=== PATIENT | female | born 1945 | race Caucasian/White ===

== ENCOUNTER 2017-07-16 09:36 | Outpatient (CLI) | payer MEDICARE, OTHER ==
--- NOTE | 2017-07-16 12:40 | XRAY Report ---
THREE-VIEW LEFT KNEE: 07/16/2017 CLINICAL INDICATION: Pain. FINDINGS: AP, lateral, sunrise views of the left knee demonstrate no evidence of fracture or disloca tion. Minimal osteoarthritis is present, with tiny marginal osteophytes. No effusion is seen. No f oreign body is seen in the soft tissues. IMPRESSION: MINIMAL OSTEOARTHRITIS. JOB #: [id number] EXT JOB #:[id number]
== END 2017-07-16 09:37 | disposition home or self-care (01) ==
LOC: DI 09:36
PROVIDERS: ATTEND Physician Assistant Medical
DX: M17.12 Unilateral primary osteoarthritis, left knee (principal)

== ENCOUNTER 2018-04-22 07:21 | Day surgery (SDC) | payer MEDICARE, OTHER ==
[~2018-04-22 07:21] MED LIST: BRIMONIDINE 0.2% OPHTH DROPS 5 ML ONE; BSS/LIDOCAINE/EPINEPHRINE 1 ML SYRINGE ONE; TIMOLOL 0.5% OPHTH DROPS ONE; TRIAMCIN/MOXIFLOX OPHTHALMIC 0.6 ML VIAL IO ONE; VANCOMYCIN OPHTHALMI 8MG/0.8ML 8 MG/0.8 ML SYRINGE IO ONE
[2018-04-22] MEDS ORDERED: MIDAZOLAM 2 MG/2 ML VIAL IVP ONE (07:22)
[2018-04-22] MEDS ORDERED: PROPARACAINE 0.5% OPHTH DROPS 15 ML ONE (07:39)
[2018-04-22] MEDS ORDERED: KETOROLAC 0.45% OPHTH DROPS ONE (07:39)
[2018-04-22] MEDS ORDERED: CYCLOPENTOLATE 1% OPHTH DROPS 2 ML ONE (07:39)
[2018-04-22] MEDS ORDERED: PHENYLEPHRINE 2.5% OPHTH 2 ML DROPS ONE (07:39)
[2018-04-22] MEDS ORDERED: LACTATED RINGERS 500 ML IV ONE (07:42)
[2018-04-22] MEDS ORDERED: KETOROLAC 0.45% OPHTH DROPS LEFTEYE ONE (07:47)
[2018-04-22] MEDS ORDERED: CYCLOPENTOLATE 1% OPHTH DROPS 2 ML LEFTEYE ONE (07:47)
[2018-04-22] MEDS ORDERED: PHENYLEPHRINE 2.5% OPHTH 2 ML DROPS LEFTEYE ONE (07:47)
[2018-04-22] MEDS ORDERED: PROPARACAINE 0.5% OPHTH DROPS 15 ML LEFTEYE ONE ×2 (07:47→08:54)
[2018-04-22] MEDS ORDERED: EPINEPHrine 1 MG/ML AMP IR ONE (08:51)
[2018-04-22] MEDS ORDERED: BRIMONIDINE 0.2% OPHTH DROPS 5 ML OPTH ONE (08:51)
[2018-04-22] MEDS ORDERED: CHONDR SULF/HYALURONATE SYRINGE IO ONE (08:52)
[2018-04-22] MEDS ORDERED: BSS/LIDOCAINE/EPINEPHRINE 1 ML SYRINGE IO ONE ×2 (08:53)
[2018-04-22] MEDS ORDERED: TIMOLOL 0.5% OPHTH DROPS OPTH ONE (08:53)
[2018-04-22 09:53] VITALS: BP 108/69
--- NOTE | 2018-04-22 16:22 | OPERATIVE REPORT ---
DATE OF SERVICE: 04/22/2018 Physician: Alvaro Forrester MD PREOPERATIVE DIAGNOSIS: Visually significant cataract, left eye. This was her first cataract surgery. POSTOPERATIVE DIAGNOSIS: Visually significant cataract, left eye. This was her first cataract surgery. NAME OF PROCEDURE: Phacoemulsification with posterior chamber intraocular lens implant, left eye with laser assist. SURGEON: Alvaro Forrester MD ANESTHESIA: Monitored anesthesia care. COMPLICATIONS: None. OPERATIVE INDICATIONS: This is a 72-year-old woman with progressive vision loss in the left eye due to 2+ nuclear sclerotic, 2+ cortical and 1+ posterior subcapsular cataract. Best corrected visual acuity was 20/30 with glare to 20/400 in the left eye. Indications for surgery are overall decrease in vision, difficulty driving in low light or at night and difficulty driving at night because of head lights from other vehicles. She was consented at length concerning risks and benefits of cataract surgery. Afterward, she expressed a desire to proceed with surgery. OPERATIVE PROCEDURE: The patient was taken to OR #3 and placed under monitored anesthesia care. A surgical timeout was conducted confirming the correct patient, correct procedure, and correct surgical site. She was placed on the LenSx laser and her eye docked to the laser interface. The laser performed the capsulotomy, lens softening, phaco wounds, and arcuate keratotomy incisions. She was then moved to the operating microscope, given topical anesthesia, and then prepped and draped in the usual sterile fashion. The eye was entered at the 6 and 3 o'clock positions. Intracameral Shugarcaine was injected into the anterior chamber, followed by Viscoat. A capsulorrhexis flap created by the LenSx laser was removed from the anterior chamber. Nucleus was hydrodissected and phacoemulsified. The cortex was evacuated using automated infusion and aspiration. Provisc was injected in the capsular bag and a 22.0 diopter intraocular lens inserted into the bag. Approximately 0.8 mL of a mixture of triamcinolone, moxifloxacin, and vancomycin was injected subconjunctivally in the superior quadrant for infection and inflammation prophylaxis. I and A was used to evacuate the viscoelastic material. The eye was inflated to physiologic pressure using balanced salt solution and found to be watertight. The patient was taken from the operating room in good condition and given postop instructions. TD: 04/22/2018 09:29
== END 2018-04-22 07:22 | disposition home or self-care (01) ==
LOC: SDS 07:21
PROVIDERS: ATTEND Ophthalmology
PROC: 08RK3JZ Replacement of Left Lens with Synthetic Substitute, Percutaneous Approach (ICD-10-PCS; principal; 2018-04-22 08:30)
DX: H25.812 Combined forms of age-related cataract, left eye (principal); Z85.51 Personal history of malignant neoplasm of bladder
CPT/HCPCS: 66984; A9270; J3490; V2632

== ENCOUNTER 2018-05-20 08:51 | Day surgery (SDC) | payer MEDICARE, OTHER ==
[2018-05-20] MEDS ORDERED: PHENYLEPHRINE 2.5% OPHTH 2 ML DROPS ONE (09:16)
[2018-05-20] MEDS ORDERED: KETOROLAC 0.45% OPHTH DROPS ONE (09:16)
[2018-05-20] MEDS ORDERED: CYCLOPENTOLATE 1% OPHTH DROPS 2 ML ONE (09:16)
[2018-05-20] MEDS ORDERED: PROPARACAINE 0.5% OPHTH DROPS 15 ML ONE (09:16)
[2018-05-20] MEDS ORDERED: CYCLOPENTOLATE 1% OPHTH DROPS 2 ML RIGHTEYE ONE (09:20)
[2018-05-20] MEDS ORDERED: KETOROLAC 0.45% OPHTH DROPS RIGHTEYE ONE (09:20)
[2018-05-20] MEDS ORDERED: PROPARACAINE 0.5% OPHTH DROPS 15 ML RIGHTEYE ONE ×2 (09:20→11:02)
[2018-05-20] MEDS ORDERED: PHENYLEPHRINE 2.5% OPHTH 2 ML DROPS RIGHTEYE ONE (09:20)
[2018-05-20] MEDS ORDERED: LACTATED RINGERS 500 ML IV ONE (09:25)
[2018-05-20] MEDS ORDERED: BRIMONIDINE 0.2% OPHTH DROPS 5 ML OPTH ONE (11:00)
[2018-05-20] MEDS ORDERED: EPINEPHrine 1 MG/ML AMP IR ONE (11:01)
[2018-05-20] MEDS ORDERED: CHONDR SULF/HYALURONATE SYRINGE IO ONE (11:01)
[2018-05-20] MEDS ORDERED: BSS/LIDOCAINE/EPINEPHRINE 1 ML SYRINGE IO ONE ×2 (11:02)
[2018-05-20] MEDS ORDERED: TIMOLOL 0.5% OPHTH DROPS OPTH ONE (11:02)
[2018-05-20] MEDS ORDERED: MIDAZOLAM 2 MG/2 ML VIAL IVP ONE (11:12)
[2018-05-20 11:37] VITALS: BP 106/71
--- NOTE | 2018-05-20 12:07 | OPERATIVE REPORT ---
DATE OF SERVICE: 05/20/2018 Physician: Alvaro Forrester MD PREOPERATIVE DIAGNOSIS: Visually significant cataract, right eye. Cataract surgery was performed on the left eye on 04/22/2018. POSTOPERATIVE DIAGNOSIS: Visually significant cataract, right eye. Cataract surgery was performed on the left eye on 04/22/2018. PROCEDURE: Phacoemulsification with posterior chamber intraocular lens implant, right eye, with laser assist. SURGEON: Alvaro Forrester MD ANESTHESIA: Monitored anesthesia care. COMPLICATIONS: None. OPERATIVE INDICATIONS: This is a 72-year-old woman with progressive vision loss in the right eye due to 2+ nuclear sclerotic, 3+ cortical and 1-2+ anterior subcapsular cataract. Best corrected visual acuity was 20/25, with glare to 20/400 in the right eye. INDICATIONS FOR SURGERY: Overall decrease in vision, difficulty seeing words on a computer screen, difficulty reading; difficulty driving in low light or at night, and difficulty driving at night because of head lights from other vehicles. She was consented at length concerning risks and benefits of cataract surgery, after which she expressed a desire to proceed with surgery. OPERATIVE PROCEDURE: The patient was taken to OR #3 and placed under monitored anesthesia care. A surgical timeout was conducted confirming the correct patient, correct procedure, and correct surgical site. She was placed on the LenSx laser, and eye was docked to the laser interface. The laser performed the capsulotomy, lens softening, phaco wounds, and arcuate keratotomy incisions. She was then moved to the operating microscope, given topical anesthesia, and prepped and draped in usual sterile fashion. The eye was entered at the 12 and 9 o'clock positions. Intracameral Shugarcaine was injected into the anterior chamber, followed by Viscoat. A capsulorrhexis flap created by the LenSx laser was removed from the anterior chamber. The nucleus was hydrodissected and phacoemulsified. The cortex was evacuated using automated infusion and aspiration. Provisc was injected in the capsular bag, and a 21.5 diopter intraocular lens was inserted into the bag. Approximately 0.8 mL of a mixture of triamcinolone, moxifloxacin, and vancomycin was injected subconjunctivally in the superior quadrant for infection and inflammation prophylaxis. I and A was used to evacuate the viscoelastic material. The eye was inflated to physiologic pressure using balanced salt solution, and found to be watertight. The patient was taken from the operating room in good condition, and given postoperative instructions. TD: 05/20/2018 11:38
== END 2018-05-20 08:52 | disposition home or self-care (01) ==
LOC: SDS 08:51
PROVIDERS: ATTEND Ophthalmology
PROC: 08RJ3JZ Replacement of Right Lens with Synthetic Substitute, Percutaneous Approach (ICD-10-PCS; principal; 2018-05-20 10:00)
DX: H25.811 Combined forms of age-related cataract, right eye (principal); Z85.51 Personal history of malignant neoplasm of bladder; Z79.82 Long term (current) use of aspirin
CPT/HCPCS: 66984; A9270; J3490; V2632

== ENCOUNTER 2018-06-22 08:27 | Outpatient (CLI) | payer MEDICARE, OTHER ==
[2018-06-22 14:01] LABS: BASOPHILS % (AUTO) 1.3 %; EOSINOPHILS # (AUTO) 0.1 10^3/uL (0.0-0.7); EOSINOPHILS % (AUTO) 2.4 %; HGB - HEMOGLOBIN 13.1 g/dL (12.0-16.0); LYMPHOCYTES # (AUTO) 1.4 10^3/uL (1.5-3.5); LYMPHOCYTES % (AUTO) 38.6 %; MEAN CORPUSCULAR HEMOGLOBIN 30.5 pg (27.0-31.0); MEAN CORPUSCULAR HGB CONC 34.3 g/dL (32.0-36.0); MEAN PLATELET VOLUME 8.5 fL (7.9-10.8); MONOCYTES # (AUTO) 0.3 10^3/uL (0.0-1.0); MONOCYTES % (AUTO) 7.5 %; NEUTROPHILS # (AUTO) 1.9 10^3/uL (1.5-6.6); NEUTROPHILS % (AUTO) 50.2 %; PLT - PLATELET COUNT 230 10^3/uL (130-450); RED BLOOD COUNT 4.29 10^6/uL (4.20-5.40); RED CELL DISTRIBUTION WIDTH 13.2 % (12.0-15.0); WHITE BLOOD COUNT 3.7 x10^3/uL (4.8-10.8)
[2018-06-22 14:12] LABS: ALBUMIN/GLOBULIN RATIO 1.3 (1.0-2.2); ALKALINE PHOSPHATASE 55 IU/L (42-121); ALT ALANINE AMINOTRANSFERASE 13 IU/L (10-60); AST ASPARTATE AMINOTRANSFERASE 15 IU/L (10-42); BUN - BLOOD UREA NITROGEN 14 mg/dL (6-20); CALCIUM 9.2 mg/dL (8.5-10.3); CARBON DIOXIDE - CO2 26 mmol/L (21-32); CHLORIDE 103 mmol/L (101-111); CHOL/HDL RATIO 2.9 (<4.4); CHOLESTEROL 238 mg/dL; CREATININE 0.6 mg/dL (0.4-1.0); GFR - MDRD 99 (>89); GLUCOSE 99 mg/dL (70-100); HDL CHOLESTEROL 81 mg/dL; LDL CHOLESTEROL,CALCULATED 135 mg/dL; LDL/HDL RATIO 1.7 (<4.4); SODIUM 138 mmol/L (135-145); VLDL CHOLESTEROL 22 mg/dL
== END 2018-06-22 08:28 | disposition home or self-care (01) ==
LOC: LAB.WCP 08:27
PROVIDERS: ATTEND Family Medicine
DX: E78.5 Hyperlipidemia, unspecified (principal); M19.90 Unspecified osteoarthritis, unspecified site
CPT/HCPCS: 36415; 80053; 80061; 83721; 84443; 85025

== ENCOUNTER 2018-07-07 08:41 | Outpatient (CLI) | payer MEDICARE, OTHER ==
--- NOTE | 2018-07-07 16:36 | DEXA Report ---
Reason: ASYMPTOMATIC POSTMENOPAUSAL STATUS Procedure Date: 07/07/2018 Accession Number: [id number] / [id number] Procedure: DEX - Dexa Spine and/or Hip CPT Code: FULL RESULT: EXAM: Dexa Spine and/or Hip DATE: 07/07/2018 9:18 AM CLINICAL HISTORY: ASYMPTOMATIC POSTMENOPAUSAL STATUS TECHNIQUE: Dual energy x-ray absorptiometry (DXA) was performed on a [employer] System. Regions measured are the AP Spine, femoral neck, and if needed forearm. COMPARISON: None. In accordance with the International Society for Clinical Densitometry (ISCD) guidelines, data from previous exams may be reanalyzed using current recommendations and techniques. This is done to allow a more accurate basis for comparison with the current study. FINDINGS: The data for the lumbar spine is as follows: BMD (g/cm/cm) T-SCORE Z-SCORE REGION L1 1.055 -0.6 1.1 L2 1.226 0.2 1.9 L3 1.411 1.8 3.5 L4 1.261 0.5 2.2 TOTAL 1.244 0.5 2.3 NOTE: All evaluable vertebrae are used for classification The data for the hip is as follows: BMD (g/cm/cm) T-SCORE Z-SCORE REGION Neck 0.610 -3.1 -1.3 TOTAL 0.649 -2.8 -1.3 NOTE: The femoral neck or total proximal femur, whichever is lowest, is used for classification. IMPRESSION: THE WHO CLASSIFICATION BASED ON THE INTERNATIONAL REFERENCE STANDARD IS OSTEOPOROSIS. THE FRACTURE RISK IS HIGH. RECOMMENDATION: Patients with diagnosis of osteoporosis or osteopenia should have regular bone mineral density assessment. For those eligible for Medicare, routine testing is allowed once every 2 years. Testing frequency can be increased for patients who have rapidly progressing disease or for those who are receiving medical therapy to restore bone mass. COMMENT: World Health Organization (WHO) definitions for osteoporosis and osteopenia: NORMAL BMD: T-score at -1.0 or higher, fracture risk is low OSTEOPENIA BMD: T-score between -1.0 and -2.5, fracture risk is increased. OSTEOPOROSIS BMD: T-score at -2.5 or lower, fracture risk is high. National Osteoporosis Foundation recommends: 1. Obtain adequate dietary calcium (at least 1200 mg per day) and vitamin D (400-800 international units per day). 2. Participate, as appropriate, in regular weightbearing and muscle-strengthening exercise. 3. Avoid tobacco use and reduce alcohol and caffeine intake. 4. For more detailed information see the website at www.NOF.org.
== END 2018-07-07 08:42 | disposition home or self-care (01) ==
LOC: DI 08:41
PROVIDERS: ATTEND Family Medicine
DX: Z78.0 Asymptomatic menopausal state (principal); M85.89 Other specified disorders of bone density and structure, multiple sites
CPT/HCPCS: 77080

== ENCOUNTER 2018-08-17 11:22 | Outpatient (CLI) | payer MEDICARE, OTHER ==
--- NOTE | 2018-08-17 16:18 | XRAY Report ---
Reason: OSTEOPOROSIS Procedure Date: 08/17/2018 Accession Number: [id number] / [id number] Procedure: XR - Lumbar Spine 2 View CPT Code: FULL RESULT: EXAM: LUMBOSACRAL SPINE RADIOGRAPHY EXAM DATE: 08/17/2018 11:42 AM. CLINICAL HISTORY: OSTEOPOROSIS. COMPARISONS: None. TECHNIQUE: 3 views. FINDINGS: Alignment: Approximately 2 mm of anterolisthesis of L4 on L5, likely degenerative. No scoliosis. Bones: 5 [id number] lumbar type vertebral bodies are, S1 is partially lumbarized. No fractures or bone lesions. Disks: Mild loss of disk space height at multiple lumbar levels. Facets: There is severe facet arthropathy at L5-S1. Moderate facet arthropathy at L4-L5. Sacroiliac Joints: Unremarkable. Soft Tissues: Normal. The visualized bowel gas pattern is normal. IMPRESSION: Degenerative changes as described. RADIA
--- NOTE | 2018-08-17 16:18 | XRAY Report ---
Reason: OSTEOPOROSIS Procedure Date: 08/17/2018 Accession Number: [id number] / [id number] Procedure: XR - Thoracic Spine 2 View CPT Code: FULL RESULT: EXAM: THORACIC SPINE RADIOGRAPHY EXAM DATE: 08/17/2018 11:42 AM. CLINICAL HISTORY: OSTEOPOROSIS. COMPARISON: None. TECHNIQUE: 2 views. FINDINGS: Alignment: Normal. No spondylolisthesis or scoliosis. Bones: Anterior superior endplate fracture of T7 with resultant kyphosis. Disks: Normal. Disk heights are maintained. Soft Tissues: Normal. The visualized lungs and cardiomediastinal silhouette are normal. IMPRESSION: T7 superior endplate fracture involving the anterior 25% resulting in kyphosis. RADIA
== END 2018-08-17 11:23 | disposition home or self-care (01) ==
LOC: DI 11:22
PROVIDERS: ATTEND Family Medicine
DX: M48.54XA Collapsed vertebra, not elsewhere classified, thoracic region, initial encounter for fracture (principal); M40.14 Other secondary kyphosis, thoracic region; M47.9 Spondylosis, unspecified; M43.16 Spondylolisthesis, lumbar region
CPT/HCPCS: 72070; 72100

== ENCOUNTER 2018-09-20 11:33 | Day surgery (SDC) | payer MEDICARE, OTHER ==
[2018-09-20] MEDS ORDERED: LACTATED RINGERS 1,000 ML IV ONE (11:37)
[2018-09-20] MEDS ORDERED: MIDAZOLAM 2 MG/2 ML VIAL IVP ONE (12:10)
[2018-09-20] MEDS ORDERED: fentaNYL 100 MCG/2 ML VIAL IVP ONE (12:10)
[2018-09-20 13:42] VITALS: BP 105/58
== END 2018-09-20 11:34 | disposition home or self-care (01) ==
LOC: SDS 11:33
PROVIDERS: ATTEND Surgery
PROC: 0DJD8ZZ Inspection of Lower Intestinal Tract, Via Natural or Artificial Opening Endoscopic (ICD-10-PCS; principal; 2018-09-20 12:45)
DX: Z12.11 Encounter for screening for malignant neoplasm of colon (principal); K64.8 Other hemorrhoids
CPT/HCPCS: G0121; J7120

== ENCOUNTER 2018-11-04 09:16 | Outpatient (CLI) | payer MEDICARE, OTHER ==
[2018-11-04 09:57] LABS: CALCIUM 9.1 mg/dL (8.5-10.3); CREATININE 0.6 mg/dL (0.4-1.0); PHOSPHORUS 3.3 mg/dL (2.5-4.6)
== END 2018-11-04 09:17 | disposition home or self-care (01) ==
LOC: LAB 09:16
PROVIDERS: ATTEND Internal Medicine Endocrinology, Diabetes & Metabolism
DX: M81.0 Age-related osteoporosis without current pathological fracture (principal)
CPT/HCPCS: 36415; 81599; 82306; 82310; 82523; 82565; 83970; 84100

== ENCOUNTER 2019-11-30 09:07 | Outpatient (CLI) | payer MEDICARE, OTHER ==
--- NOTE | 2019-11-30 14:56 | DEXA Report ---
Reason: OSTEOPOROSIS Procedure Date: 11/30/2019 Accession Number: [id number] / [id number] Procedure: DEX - Dexa Spine and/or Hip CPT Code: Final Report FULL RESULT: EXAM: Dexa Spine and/or Hip DATE: 11/30/2019 9:40 AM HISTORY: Postmenopausal. Osteoporosis. TECHNIQUE: Dual energy x-ray absorptiometry (DXA) was performed on a [employer] System. Regions measured are the AP Spine, femoral neck, and if needed forearm. COMPARISON: None. In accordance with the International Society for Clinical Densitometry (ISCD) guidelines, data from previous exams may be reanalyzed using current recommendations and techniques. This is done to allow a more accurate basis for comparison with the current study. FINDINGS: The data for the lumbar spine is as follows: BMD (g/cm/cm) T-SCORE Z-SCORE REGION L1 1.091 -0.3 1.4 L2 1.343 1.2 2.9 L3 1.607 3.4 5.1 L4 1.382 1.5 3.3 TOTAL 1.367 1.6 3.3 NOTE: All evaluable vertebrae are used for classification The data for the hip is as follows: BMD (g/cm/cm) T-SCORE Z-SCORE REGION Neck 0.578 -3.3 -1.5 TOTAL 0.682 -2.6 -1.0 NOTE: The femoral neck or total proximal femur, whichever is lowest, is used for classification. DXA RESULTS SUMMARY: Spine SCAN DATE AGE BMD CHANGE VS CHANGE VS PREVIOUS PREVIOUS % 13/30/2019 [age] 1.367 0.123* 9.9 07/07/2018 [age] 1.244 * Denotes significant change at the 95% confidence level. Denotes dissimilar scan types or analysis methods. DXA RESULTS SUMMARY: Hip SCAN DATE AGE BMD CHANGE VS CHANGE VS PREVIOUS PREVIOUS % 13/[birth year]/2019 74.4 0.682 0.033 5.1 07/07/2018 [age] 0.649 * Denotes significant change at the 95% confidence level. Denotes dissimilar scan types or analysis methods. IMPRESSION: THE WHO CLASSIFICATION BASED ON THE INTERNATIONAL REFERENCE STANDARD IS OSTEOPOROSIS. THE FRACTURE RISK IS HIGH. RECOMMENDATION: Patients with diagnosis of osteoporosis or osteopenia should have regular bone mineral density assessment. For those eligible for Medicare, routine testing is allowed once every 2 years. Testing frequency can be increased for patients who have rapidly progressing disease or for those who are receiving medical therapy to restore bone mass. COMMENT: World Health Organization (WHO) definitions for osteoporosis and osteopenia: NORMAL BMD: T-score at -1.0 or higher, fracture risk is low OSTEOPENIA BMD: T-score between -1.0 and -2.5, fracture risk is increased. OSTEOPOROSIS BMD: T-score at -2.5 or lower, fracture risk is high. National Osteoporosis Foundation recommends: 1. Obtain adequate dietary calcium (at least 1200 mg per day) and vitamin D (400-800 international units per day). 2. Participate, as appropriate, in regular weightbearing and muscle-strengthening exercise. 3. Avoid tobacco use and reduce alcohol and caffeine intake. 4. For more detailed information see the website at www.NOF.org.
== END 2019-11-30 09:08 | disposition home or self-care (01) ==
LOC: DI 09:07
PROVIDERS: ATTEND Internal Medicine Endocrinology, Diabetes & Metabolism
DX: M81.0 Age-related osteoporosis without current pathological fracture (principal)
CPT/HCPCS: 77080

== ENCOUNTER 2020-12-12 13:50 | Outpatient (CLI) | payer MEDICARE, OTHER ==
--- NOTE | 2020-12-13 08:17 | Mammography Report ---
BILATERAL DIGITAL SCREENING MAMMOGRAM 3D/2D: 12/12/2020 CLINICAL: Routine screening. Comparison is made to exams dated: 10/11/2019 mammogram, 06/30/2018 mammogram, and 04/08/2017 mammogram - [facility]. The tissue of both breasts is heterogeneously dense. This may lower th e sensitivity of mammography. No significant masses, calcifications, or other findings are seen in either breast. There has been no significant interval change. IMPRESSION: NEGATIVE There is no mammographic evidence of malignancy. A 1 year screening mammogram is recommended. This exam was interpreted at Station ID: [id number]. NOTE: For mammograms, a report in lay terms will be sent to the patient. Approximately 15% of breast malignancies will not be visualized mammographically. In the management of a palpable breast mass, a negative mammogram must not discourage biopsy of a clinically suspicious lesion. Electronically Signed By: Yann Ivy M.D. ddp/penrad:12/12/2020 15:14:00 ACR BI-RADS Category 1: Negative 3341F PARENCHYMAL PATTERN: (D) - The breast(s) demonstrate(s) heterogeneously dense fibroglandular jack alvarado. BI-RADS CATEGORY: (1) - 1 RECOMMENDATION: (ANNUAL) - Recommend routine annual screening mammography. [id number] 1 year screening LATERALITY: (B)
== END 2020-12-12 13:51 | disposition home or self-care (01) ==
LOC: DI 13:50
DX: Z12.31 Encounter for screening mammogram for malignant neoplasm of breast (principal)

== ENCOUNTER 2021-03-14 08:18 | Outpatient (CLI) | payer MEDICARE, OTHER ==
[2021-03-14 12:30] LABS: EOSINOPHILS # (AUTO) 0.1 10^3/uL (0.0-0.7); EOSINOPHILS % (AUTO) 3.2 %; HCT - HEMATOCRIT 41.5 % (37.0-47.0); HGB - HEMOGLOBIN 13.8 g/dL (12.0-16.0); LYMPHOCYTES # (AUTO) 1.8 10^3/uL (1.5-3.5); LYMPHOCYTES % (AUTO) 45.5 %; MEAN CORPUSCULAR HEMOGLOBIN 30.3 pg (27.0-31.0); MEAN CORPUSCULAR HGB CONC 33.3 g/dL (32.0-36.0); MEAN PLATELET VOLUME 10.5 fL (7.9-10.8); MONOCYTES # (AUTO) 0.4 10^3/uL (0.0-1.0); MONOCYTES % (AUTO) 9.2 %; NEUTROPHILS # (AUTO) 1.6 10^3/uL (1.5-6.6); NEUTROPHILS % (AUTO) 40.9 %; PLT - PLATELET COUNT 219 10^3/uL (130-450); RED BLOOD COUNT 4.56 10^6/uL (4.20-5.40); RED CELL DISTRIBUTION WIDTH 13.2 % (12.0-15.0)
[2021-03-14 12:53] LABS: ALBUMIN 4.4 g/dL (3.2-5.5); ALBUMIN/GLOBULIN RATIO 1.6 (1.0-2.2); ALKALINE PHOSPHATASE 37 IU/L (42-121); ALT ALANINE AMINOTRANSFERASE 25 IU/L (10-60); AST ASPARTATE AMINOTRANSFERASE 23 IU/L (10-42); BILIRUBIN,TOTAL 0.7 mg/dL (0.2-1.0); BUN - BLOOD UREA NITROGEN 22 mg/dL (6-20); CALCIUM 9.3 mg/dL (8.5-10.3); CARBON DIOXIDE - CO2 27 mmol/L (21-32); CHLORIDE 107 mmol/L (101-111); CHOLESTEROL 305 mg/dL; CREATININE 0.7 mg/dL (0.4-1.0); GFR - MDRD 82 (>89); GLUCOSE 107 mg/dL (70-100); HDL CHOLESTEROL 102 mg/dL; LDL CHOLESTEROL,CALCULATED 188 mg/dL; LDL/HDL RATIO 1.8 (<4.4); POTASSIUM 4.5 mmol/L (3.5-5.0); SODIUM 142 mmol/L (135-145); TOTAL PROTEIN 7.2 g/dL (6.7-8.2); TRIGLYCERIDES 73 mg/dL; VLDL CHOLESTEROL 15 mg/dL
[2021-03-14 13:02] LABS: THYROID STIMULATING HORMONE 0.89 uIU/mL (0.34-5.60)
== END 2021-03-14 23:59 | disposition home or self-care (01) ==
LOC: LAB.WCP 08:18
PROVIDERS: ATTEND Internal Medicine
DX: D72.819 Decreased white blood cell count, unspecified (principal); M81.0 Age-related osteoporosis without current pathological fracture; E78.5 Hyperlipidemia, unspecified; Z13.29 Encounter for screening for other suspected endocrine disorder
CPT/HCPCS: 36415; 80053; 80061; 83721; 84443; 85025

== ENCOUNTER 2021-09-11 08:00 | Outpatient (CLI) | payer MEDICARE, OTHER ==
[2021-09-11 13:04] LABS: ALBUMIN 4.2 g/dL (3.2-5.5); ALBUMIN/GLOBULIN RATIO 1.6 (1.0-2.2); ALKALINE PHOSPHATASE 38 IU/L (42-121); ALT ALANINE AMINOTRANSFERASE 24 IU/L (10-60); AST ASPARTATE AMINOTRANSFERASE 17 IU/L (10-42); BILIRUBIN,TOTAL 0.8 mg/dL (0.2-1.0); BUN - BLOOD UREA NITROGEN 18 mg/dL (6-20); CALCIUM 9.2 mg/dL (8.5-10.3); CARBON DIOXIDE - CO2 27 mmol/L (21-32); CHLORIDE 105 mmol/L (101-111); CHOL/HDL RATIO 3.7 (<4.4); CHOLESTEROL 287 mg/dL; CREATININE 0.7 mg/dL (0.4-1.0); GFR - MDRD 82 (>89); GLUCOSE 98 mg/dL (70-100); HDL CHOLESTEROL 78 mg/dL; LDL CHOLESTEROL,CALCULATED 186 mg/dL; LDL/HDL RATIO 2.4 (<4.4); POTASSIUM 4.1 mmol/L (3.5-5.0); SODIUM 139 mmol/L (135-145); TOTAL PROTEIN 6.9 g/dL (6.7-8.2); TRIGLYCERIDES 115 mg/dL; VLDL CHOLESTEROL 23 mg/dL
== END 2021-09-11 23:59 | disposition home or self-care (01) ==
LOC: LAB.WCP 08:00
PROVIDERS: ATTEND Physician Assistant Medical
DX: E78.5 Hyperlipidemia, unspecified (principal)
CPT/HCPCS: 36415; 80053; 80061; 83721

== ENCOUNTER 2021-11-19 08:11 | Outpatient (CLI) | payer MEDICARE, OTHER ==
--- NOTE | 2021-11-19 08:58 | DEXA Report ---
PROCEDURE: Dexa Spine and/or Hip INDICATIONS: OSTEOPOROSIS TECHNIQUE: Dual energy x-ray absorptiometry (DXA) was performed on a [employer] System. Regions measur ed are the AP Spine, femoral neck, and if needed forearm. COMPARISON: 11/30/2019. FINDINGS: Lumbar Spine: Bone Mineral Density 1.266 g/cm/cm,T score 0.8. There is interval 2.2% increase in total lumbar sp ine bone mineral density. Left Hip: Bone Mineral Density 0.684 g/cm/cm,T score -2.6, there is interval 0.3% increase in left hip bone mi neral density. Left Femoral Neck: Bone Mineral Density 0.635 g/cm/cm, T score -2.9. (T score greater or equal to -1.0: NORMAL) (T score from -1.1 to -2.4: OSTEOPENIA) (T score less than or equal to -2.5 to: OSTEOPOROSIS) Impression: Osteoporosis. Patients with diagnosis of osteoporosis or osteopenia should have regular bone mineral density assess ment. For those eligible for Medicare, routine testing is allowed once every 2 years. Testing frequ ency can be increased for patients who have rapidly progressing disease or for those who are receivin g medical therapy to restore bone mass. Reviewed by: Adam Ramírez MD on 11/19/2021 8:56 AM PST Approved by: Adam Ramírez MD on 11/19/2021 8:56 AM PST Station ID: [id number]
== END 2021-11-19 08:12 | disposition home or self-care (01) ==
LOC: DI 08:11
PROVIDERS: ATTEND Internal Medicine Endocrinology, Diabetes & Metabolism
DX: M81.0 Age-related osteoporosis without current pathological fracture (principal)

== ENCOUNTER 2022-02-28 08:19 | Outpatient (CLI) | payer MEDICARE, OTHER ==
[2022-02-28 12:32] LABS: BASOPHILS # (AUTO) 0.1 10^3/uL (0.0-0.1); BASOPHILS % (AUTO) 1.1 %; EOSINOPHILS # (AUTO) 0.1 10^3/uL (0.0-0.7); EOSINOPHILS % (AUTO) 2.8 %; HCT - HEMATOCRIT 39.5 % (37.0-47.0); LYMPHOCYTES # (AUTO) 2.2 10^3/uL (1.5-3.5); LYMPHOCYTES % (AUTO) 48.4 %; MEAN CORPUSCULAR HEMOGLOBIN 29.9 pg (27.0-31.0); MEAN CORPUSCULAR HGB CONC 32.9 g/dL (32.0-36.0); MEAN CORPUSCULAR VOLUME 90.8 fL (81.0-99.0); MEAN PLATELET VOLUME 10.4 fL (7.9-10.8); MONOCYTES # (AUTO) 0.3 10^3/uL (0.0-1.0); MONOCYTES % (AUTO) 7.2 %; NEUTROPHILS # (AUTO) 1.8 10^3/uL (1.5-6.6); NEUTROPHILS % (AUTO) 40.3 %; PLT - PLATELET COUNT 203 10^3/uL (130-450); RED BLOOD COUNT 4.35 10^6/uL (4.20-5.40); RED CELL DISTRIBUTION WIDTH 12.8 % (12.0-15.0); WHITE BLOOD COUNT 4.6 x10^3/uL (4.8-10.8)
[2022-02-28 12:46] LABS: ALBUMIN/GLOBULIN RATIO 1.3 (1.0-2.2); ALKALINE PHOSPHATASE 36 IU/L (42-121); ALT ALANINE AMINOTRANSFERASE 17 IU/L (10-60); AST ASPARTATE AMINOTRANSFERASE 16 IU/L (10-42); BILIRUBIN,TOTAL 0.7 mg/dL (0.2-1.0); BUN - BLOOD UREA NITROGEN 24 mg/dL (6-20); CALCIUM 9.4 mg/dL (8.5-10.3); CARBON DIOXIDE - CO2 27 mmol/L (21-32); CHLORIDE 107 mmol/L (101-111); CHOL/HDL RATIO 3.2 (<4.4); CHOLESTEROL 252 mg/dL; CREATININE 0.7 mg/dL (0.4-1.0); GFR - MDRD 82 (>89); GLUCOSE 107 mg/dL (70-100); HDL CHOLESTEROL 78 mg/dL; LDL CHOLESTEROL,CALCULATED 156 mg/dL; POTASSIUM 4.3 mmol/L (3.5-5.0); SODIUM 140 mmol/L (135-145); TRIGLYCERIDES 89 mg/dL; VLDL CHOLESTEROL 18 mg/dL
[2022-02-28 13:07] LABS: THYROID STIMULATING HORMONE 0.77 uIU/mL (0.34-5.60)
== END 2022-02-28 08:20 | disposition home or self-care (01) ==
LOC: LAB.N 08:19
PROVIDERS: ATTEND Internal Medicine
DX: E78.5 Hyperlipidemia, unspecified (principal); M81.0 Age-related osteoporosis without current pathological fracture
CPT/HCPCS: 36415; 80053; 80061; 83721; 84443; 85025

== ENCOUNTER 2024-01-14 12:43 | Outpatient (CLI) | payer MEDICARE, OTHER ==
--- NOTE | 2024-01-14 19:58 | DEXA Report ---
PROCEDURE: Dexa Spine and/or Hip INDICATIONS: OSTEOPOROSIS TECHNIQUE: Dual energy x-ray absorptiometry (DEXA) was performed in the regions detailed below. COMPARISON: 11/19/2021 FINDINGS: Lumbar Spine: Bone Mineral Density 1.398 g/cm/cm,T score 1.8. Previously 0.8 Left Femoral Neck: Bone Mineral Density 0.672 g/cm/cm, T score -2.6. Previously -2.9 Left Total Hip: Bone Mineral Density 0.699 g/cm/cm,T score -2.5. Previously -2.6 Right Femoral Neck: Bone Mineral Density 0.758 g/cm/cm, T score -2.0. Osteopenia Right Total Hip: Bone Mineral Density 0.753 g/cm/cm,T score -2.0. Osteopenia Left Forearm: Bone Mineral Density 0.578 g/cm/cm, T score -1.6. Osteopenia (T score greater or equal to -1.0: NORMAL) (T score from -1.1 to -2.4: OSTEOPENIA) (T score less than or equal to -2.5 to: OSTEOPOROSIS) IMPRESSION: Improving left femoral neck osteoporosis Patients with diagnosis of osteoporosis or osteopenia should have regular bone mineral density assess ment. For those eligible for Medicare, routine testing is allowed once every 2 years. Testing frequ ency can be increased for patients who have rapidly progressing disease or for those who are receivin g medical therapy to restore bone mass. Reviewed by: Luis Guzmán MD on 01/14/2024 6:57 PM [facility] Approved by: Luis Guzmán MD on 01/14/2024 6:57 PM [facility] Station ID: [id number]
== END 2024-01-14 12:44 | disposition home or self-care (01) ==
LOC: DI 12:43
PROVIDERS: ATTEND Internal Medicine Endocrinology, Diabetes & Metabolism
DX: M81.0 Age-related osteoporosis without current pathological fracture (principal)

== ENCOUNTER 2024-03-04 13:01 | Outpatient (CLI) | payer MEDICARE, OTHER ==
--- NOTE | 2024-03-07 08:09 | Mammography Report ---
BILATERAL DIGITAL SCREENING MAMMOGRAM 3D/2D: 03/04/2024 CLINICAL: Routine screening. Comparison is made to exams dated: 11/27/2022 mammogram, 12/12/2020 mammogram - [facility], 10/11/2019 mammogram, 06/30/2018 mammogram, and 04/08/2017 mammogram - [facility]. There are scattered areas of fibroglandular density in both breasts (category b / 25%-50% glandular t issue). No significant masses, calcifications, or other findings are seen in either breast. There has been no significant interval change. IMPRESSION: NEGATIVE There is no mammographic evidence of malignancy. A 1 year screening mammogram is recommended. Based on the Tyrer Cuzick model (a risk assessment model) the patient's lifetime risk is 3.7% and her 10 year risk is 0.0%. According to the ACR, ACS, and NCCN guidelines, an annual breast MRI exam isabelle g with mammogram is recommended if the patient's lifetime risk is 20% or greater. This exam was interpreted at Station ID: [id number]. NOTE: For mammograms, a report in lay terms will be sent to the patient. Approximately 15% of breast malignancies will not be visualized mammographically. In the management of a palpable breast mass, a negative mammogram must not discourage biopsy of a clinically suspicious lesion. Electronically Signed By: Norma bruce/jessenia:03/04/2024 13:56:33 letter sent: No_Letter ACR BI-RADS Category 1: Negative 3341F PARENCHYMAL PATTERN: (A) - The breast(s) demonstrate(s) scattered fibroglandular densities. BI-RADS CATEGORY: (1) - 1 RECOMMENDATION: (ANNUAL) - Recommend routine annual screening mammography. [id number] 1 year screening LATERALITY: (B)
== END 2024-03-04 13:02 | disposition home or self-care (01) ==
LOC: DI 13:01
DX: Z12.31 Encounter for screening mammogram for malignant neoplasm of breast (principal); R92.323 Mammographic fibroglandular density, bilateral breasts

== ENCOUNTER 2024-03-07 07:54 | Outpatient (CLI) | payer MEDICARE, OTHER ==
[2024-03-07 08:20] LABS: CHOLESTEROL 259 mg/dL; HDL CHOLESTEROL 86 mg/dL; LDL CHOLESTEROL,CALCULATED 146 mg/dL; LDL/HDL RATIO 1.7 (<4.4); TRIGLYCERIDES 133 mg/dL (48-352); VLDL CHOLESTEROL 27 mg/dL
== END 2024-03-07 07:55 | disposition home or self-care (01) ==
LOC: LAB 07:54
PROVIDERS: ATTEND Internal Medicine
DX: E78.5 Hyperlipidemia, unspecified (principal)
CPT/HCPCS: 36415; 80061; 83721